=== PATIENT | male | born 1980 | race Caucasian/White ===

== ENCOUNTER 2020-08-03 20:25 | Emergency (ER) | payer OTHER ==
[~2020-08-03] VITALS: Ht 180.3 cm; Wt 90.7 kg
[~2020-08-03 20:25] MED LIST: ALBUTEROL INH INH; ZPAK PO
[2020-08-03] MEDS ORDERED: TYLOPHEN500 MG PO (20:32)
[2020-08-03] MEDS ORDERED: IBUPROFEN IB200 MG PO (20:32)
[2020-08-03 21:59] VITALS: BP 150/84
== END 2020-08-03 21:50 | disposition home or self-care (01) ==
LOC: ER 20:25
DX: M25.532 Pain in left wrist (principal); W18.30XA Fall on same level, unspecified, initial encounter; Y93.89 Activity, other specified; Y92.89 Other specified places as the place of occurrence of the external cause; Y99.9 Unspecified external cause status